=== PATIENT | female | born 1970 | race Caucasian/White ===

== ENCOUNTER 2017-08-01 19:57 | Emergency (ER) | payer MEDICAID ==
[2017-08-01 20:09] VITALS: BP 144/87; PULSE 104; TEMP 97.9; O2SAT 99
--- NOTE | 2017-08-01 20:27 | C.PDOC ---
History Of Present Illness 47-year-old female, presents to the emergency department for removal of foreign body from ear. Patient states she has hearing aid stuck in left ear. Patient was removing it and cap piece was left in ear. Denies hearing changes, discharge or bleeding from ear. Time Seen by Provider: 08/01/17 20:10 Chief Complaint (Nursing): ENT Problem History Per: Patient History/Exam Limitations: None Past Medical History Reviewed: Historical Data, Nursing Documentation, Vital Signs Vital Signs: Last Vital Signs Temp 97.9 F 08/01/17 20:06 Pulse 104 H 08/01/17 20:06 Resp 20 08/01/17 22:03 BP 144/87 08/01/17 20:06 Pulse Ox 99 08/01/17 20:58 - Medical History PMH: HTN Family History: States: No Known Family Hx - Social History Hx Alcohol Use: No Hx Substance Use: No Review Of Systems ENT: Positive for: Ear Pain (+foreign body ) Physical Exam - Physical Exam Appears: Non-toxic, No Acute Distress Skin: Normal Color, Warm, Dry, No Rash Head: Normacephalic Eye(s): bilateral: Normal Inspection, EOMI Ear(s): Left: Other (+foreign body), Right: Normal Nose: Normal Oral Mucosa: Moist Lips: Normal Appearing Neck: Normal ROM, Supple Chest: Symmetrical Respiratory: No Accessory Muscle Use ED Course And Treatment O2 Sat by Pulse Oximetry: 99 (RA) Pulse Ox Interpretation: Normal Progress Note: Foreign body was removed via alligator forceps and canal was examined. No erythema, bleeding or discharge. Disposition - Disposition Disposition: HOME/ ROUTINE Disposition Time: 20:26 Condition: STABLE Instructions: Removing Objects Stuck in the Ear Forms: [employer] (Romansh) Print Language: NIUEAN - Clinical Impression Clinical Impression: Foreign body in ear - Scribe Statement The provider has reviewed the documentation as recorded by the Scribe (Guy Wilkinson) All medical record entries made by the Scribe were at my direction and personally dictated by me. I have reviewed the chart and agree that the record accurately reflects my personal performance of the history, physical exam, medical decision making, and the department course for this patient. I have also personally directed, reviewed, and agree with the discharge instructions and disposition.
[2017-08-01 22:03] VITALS: RESP 20
== END 2017-08-01 22:03 | disposition home or self-care (01) ==
LOC: C.ER 19:57
DX: T16.2XXA Foreign body in left ear, initial encounter (principal); X58.XXXA Exposure to other specified factors, initial encounter; I10 Essential (primary) hypertension